=== PATIENT | male | born 1975 ===

== ENCOUNTER 2017-12-25 11:56 | Inpatient (IN) | payer OTHER ==
[2017-12-26] MEDS ORDERED: BISACODYL 10 MG SUPP PR PRN (15:15)
[2017-12-26] MEDS ORDERED: SENNOSIDES 1 TAB PO PRN (15:35)
[2017-12-26] MEDS ORDERED: MELATONIN 3 MG TAB PO PRN (15:35)
--- NOTE | 2017-12-26 16:27 | PDOREHIP ---
Admission [facility] - Admission - 3 Day Assessment Period Admission Date/Day 1: 12/26/17 Day 2: 12/27/17 Day 3: 12/28/17 - Active Diagnoses Comorbidities and Co-existing Conditions at Admission: . None of the Above - Skin Conditions Unhealed Pressure Ulcer (1 or more/Stage 1 or >)-Admission: 0. No
--- NOTE | 2017-12-26 16:36 | GHP ---
[f rep st] HISTORY AND PHYSICAL POST ADMISSION PHYSICIAN EVALUATION AND REHABILITATION TREATMENT PLAN. DATE OF ADMISSION: 12/26/2017 DATE OF EVALUATION: 12/26/2017. TIME OF EVALUATION: 1520. REFERRING FACILITY: [facility]. IMPAIRMENT GROUP: 2.1. DATE OF ONSET: 12/21/2017. REFERRING PHYSICIAN: Dr. Carrion. CONSULTING PHYSICIANS: He was managed by the hospitalist service. REHABILITATION DIAGNOSIS: Debility, status post right craniotomy for biopsy of right frontal mass. ETIOLOGIC DIAGNOSIS: Nontraumatic brain dysfunction. DATE OF SURGERY: 12/22/2017. HISTORY OF PRESENT ILLNESS: This patient was admitted to [facility] with persistent and worsening headache, dizziness, vomiting, and blurred vision. Brain MRI showed an extensive mass lesion in the right frontal lobe with midline shift. 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 He was placed on dexamethasone to reduce brain edema and levetiracetam as seizure prophylaxis. He underwent craniotomy with biopsy of the mass on 12/22/2017. Postoperative issues included pain, bradycardia, elevated blood pressure, left-sided weakness, blurred vision, and vomiting. He was medically stabilized and ready for inpatient rehabilitation. IMAGING STUDIES: In the hospital, brain imaging showed the brain mass and subsequent resection cavity of approximately 2 x 2 x 3 cm. There was a midline shift of 8-9 mm, which persisted after his surgery. He had CT imaging of the cervical spine, which was without significant abnormality. Chest x-ray was without any abnormalities. A sinus CT was obtained and there was no sinusitis seen. LABORATORY STUDIES: Including CBC and basic metabolic profile were essentially unremarkable, but I do not have results beyond 12/23/2017. PRECAUTIONS: He is a fall risk and he has seizure precautions. ACTIVE COMORBIDITIES: He has the tier 3 comorbidity of left hemiparesis. He otherwise has no tier 1, tier 2 or tier 3 comorbidities. PAST MEDICAL HISTORY: He has no history of prior medical illnesses. PAST SURGICAL HISTORY: He has not had any surgeries. PREHOSPITAL MEDICATIONS: He was taking no medications. ADMISSION MEDICATIONS: 1. Dexamethasone taper. 2. Levetiracetam 500 mg twice daily. ALLERGIES: There are no known drug allergies. PSYCHOSOCIAL HISTORY: He is . He lives with his . He quit smoking in 2012. He has 2 children, ages 6 and 10. 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 There are stairs to enter the house. FAMILY HISTORY: Noncontributory. REVIEW OF SYSTEMS: He thinks he still has some blurred vision and found it difficult to determine which kavya the ambulance was in on his ride over. He feels that he needs to go to the bathroom, to move his bowels and to urinate. He reports he did not have access to an actual bathroom, but voiding was done in the bed or bedside commode while he was in the hospital. He slept well last night. He denies pain right now. He denies nausea, vomiting, constipation, or diarrhea. He denies fevers or chills. He denies dysuria or urinary frequency. He has no movement in the left upper extremity, but he has been improving in terms of being able to move the left lower extremity. He reports normal sensation throughout. He denies difficulty swallowing. Otherwise, a 10-point review of systems is negative. PHYSICAL EXAMINATION: VITAL SIGNS: Blood pressure is 108/77; heart rate is 53 ; respiratory rate is 18; oxygen saturation is 95% on room air; temperature is 36.9 degrees centigrade. GENERAL: This is a well-nourished, well-developed, somewhat overweight appearing man, appears his chronologic age, cooperative and in no acute distress, dressed in a hospital gown, in bed. HEENT: Extraocular movements are intact. Pupils are equal, round, and reactive to light. Mucous membranes are moist. Dentition is in good condition. He has a crowded airway, Mallampati class 3. NECK: Supple. HEART: There is a regular rate and rhythm with no murmurs, rubs, or gallops. LUNGS: Clear to auscultation bilaterally. ABDOMEN: Soft, nontender, nondistended with normoactive bowel sounds and no hepatosplenomegaly. EXTREMITIES: There is no cyanosis, clubbing, or edema. NEUROLOGIC: He is alert and oriented x3. Cranial nerves 2-12 are grossly intact. On the right side, there is no weakness. On the left side the left upper extremity has flaccid paralysis including no shoulder shrug. The left lower extremity has hip flexion approximately 3/5, quadriceps extension approximately 3/5, and he is able to partially support his weight during a transfer. SKIN: His surgical incision appears to be glued over the frontal scalp bilaterally, more so on the right than the left. There is no erythema or drainage. CURRENT LEVEL OF FUNCTION: Per the pre-admission screen. Regarding diet, feeding, and swallowing, he was on a regular texture diet with thin liquids. He was dependent for bathing. For toileting he required assistance. Bed mobility required minimal assistance for the left lower extremity. Transfers required minimal assistance into a standing aide. Balance, seated required minimal assistance. Endurance was fair. Regarding gait he was doing pregait activities and marching in place with close contact guard. He had proximal control of the left lower extremity. Regarding communication, he was noted to have aphasia with impairments in word finding and speech fluency. Regarding cognition, he was noted to have short-term memory impairment, slow speed of processing, and a flat affect. He was considered a fall risk and was noted to have left inattention. On today's exam, he is independent with bed mobility, but otherwise there are no significant differences. IMPRESSION: This is a 42-year-old man who was hospitalized with headaches, dizziness, vomiting, and blurred vision. He was found to have an extensive, primarily right frontal brain mass on imaging, consistent with gliomatosis cerebri. He had a right craniotomy and a biopsy done. There was a right to left shift and risk for brain herniation. He was treated with dexamethasone to reduce cerebral edema and to avoid brain herniation. He was treated with levetiracetam as seizure prophylaxis. Postoperatively he has been stabilized, is no longer in pain, has improvement in blurred vision, and has improvement in left-sided weakness. He is appropriate for inpatient rehabilitation. His goal is to complete a rehabilitation stay and then return home with his family and supportive services. For a safe discharge, it is anticipated that he will be independent with eating and grooming, will achieve modified independence for bed mobility, transfers, and dressing, will be able to sit independently at the edge of the bed, and will ambulate with a least restrictive device for household distances. He may require a wheelchair for community distances. He will need to be able to ascend and descend 15 stairs with contact guard. He will have improved speech fluency. He will need to be able to be home for short periods of time by himself. It is likely he will continue to require assistance for household management, shopping, and meals. He will have therapy with Physical Therapy, Occupational Therapy, and Speech and Language Pathology, initially on a modified schedule of 30-60 minutes per day for each discipline on 7 days of the week. His expected duration of stay is 21-28 days. It is anticipated that upon discharge he will continue to benefit from home health services including nursing, speech and language pathology, nurse's aide, social work, occupational therapy, and physical therapy. PLAN: 1. Debility with left hemiparesis, status post right craniotomy and biopsy of extensive mass consistent with gliomatosis cerebri. PT and OT to optimize mobility and activities of daily living towards modified independence to independent level. 2. Cognitive issues postsurgery with slow processing and possible expressive aphasia, though this was not clearly evident on my exam today. Assessment and treatment per Speech and Language Pathology. 3. Risk for cerebral edema and for seizures. He will have seizure precautions. Continue levetiracetam and continue dexamethasone taper. 4. Prophylaxis. We will continue heparin which he was receiving in the hospital, 5000 units twice daily, until his mobility is considerably improved. I have ordered laxatives and a bladder scan in case he should have difficulty with moving his bowels or urinating. FOLLOWUP: He is to see surgeon, Dr. Carrion in 2-3 weeks for a postoperative check. If he is still in the rehabilitation hospital at that time, consideration will be given to postponing his followup until after he leaves. Once the pathology is available from his biopsy specimen, he will need referral to Oncology, which typically is done by Neurosurgery. /[id number]/MODL MTDD
[2017-12-26] MEDS: DEXAMETHASONE 4 MG TAB PO SCH ×2 (16:50→20:36)
[2017-12-26] MEDS: levETIRAcetam 500 MG TAB PO SCH (20:36)
[2017-12-27] MEDS: DEXAMETHASONE 4 MG TAB PO SCH ×3 (06:14→22:01)
[2017-12-27 07:55] LABS: PLATELET COUNT 279 10^3/uL (150-400)
[2017-12-27] MEDS: levETIRAcetam 500 MG TAB PO SCH ×2 (08:27→21:58)
[2017-12-27] MEDS: HEPARIN 5,000 UNIT/0.5 ML INJ SC SCH ×2 (12:06→21:59)
--- NOTE | 2017-12-27 12:21 | SOAPPROG ---
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 * PT and OT to optimize mobility and activities of daily living towards modified independence to independent level. * Cognitive issues postsurgery with slow processing and possible expressive aphasia, though this was not clearly evident on my exam today. * Assessment and treatment per Speech and Language Pathology. 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 Carrion today, 12/27/2017. Grade 3, pathology sent to [place] for genetics. Prognosis depends on tumor genetics. Spent 20 - 30 minutes discussing treatment with step-mother and father, and with patient and step-mother. * Risk for cerebral edema and for seizures. He will have seizure precautions. Continue levetiracetam and continue dexamethasone taper. * Anxiety verses adjustment disorder with depressed mood versus pathologic laughing and crying. * Discussed medications, 12/27/2017, and he declines at present. * Encouraged him to engage in counseling with the social media developer. * Prophylaxis. Continue heparin which he was receiving in the hospital, 5000 units twice daily, until his mobility is considerably improved. I have ordered laxatives and a bladder scan in case he should have difficulty with moving his bowels or urinating. FOLLOWUP: He is to see surgeon, Dr. Carrion in 2-3 weeks for a postoperative check. If he is still in the rehabilitation hospital at that time, consideration will be given to postponing his followup until after he leaves. Once the pathology is available from his biopsy specimen, he will need referral to Oncology, which typically is done by Neurosurgery. 12/27/17 16:38 Subjective: No complaints. He had been noted to have some uncontrollable laughing and crying. He has some anxiety regarding his diagnosis and treatment. Is not in pain. No cough or dyspnea, no fevers or chills. Objective: Vital Signs Temp Pulse Resp BP Pulse Ox 36.6 C 51 L 96 H 117/75 95 12/27/17 08:00 12/27/17 08:00 12/27/17 08:00 12/27/17 08:00 12/26/17 19:09 Laboratory Results 12/27/17 06:00 12/27/17 06:00 12/26/17 12/27/17 12/28/17 05:59 05:59 05:59 Intake Total 1040 420 Output Total 1999 678 Balance -966 -511 - Time Spent With Patient Time Spent With Patient: Greater than 35 min floor time today, including more than 50% of time in counseling, discussing diagnosis, prognosis, and plan with step mother and father and with patient. Physical Exam - Physical Exam General Appearance: WD/WN, alert, no apparent distress Respiratory: normal breath sounds, No crackles, No rhonchi, No wheezing Cardiac/Chest: regular rate, rhythm, No edema, No diastolic murmur, No systolic murmur Skin: normal color, warm/dry, other (Scalp wound well-approximated. No erythema or discharge.) Neuro/Psych: alert, normal mood/affect, oriented x 3, motor weakness (Left upper greater than lower extremity) ICD10 Worksheet Patient Problems: Problems Problem Status Onset Right frontal lobe mass Acute S/P craniotomy Acute
[2017-12-28] MEDS: DEXAMETHASONE 4 MG TAB PO SCH ×3 (06:04→21:01)
[2017-12-28] MEDS: levETIRAcetam 500 MG TAB PO SCH ×2 (08:02→21:01)
[2017-12-28] MEDS: HEPARIN 5,000 UNIT/0.5 ML INJ SC SCH ×2 (08:02→21:01)
--- NOTE | 2017-12-28 14:11 | SOAPPROG ---
SOAP Progress Note Assessment/Plan: 42-year-old male status post resection of gliomatosis cerebri with impairments in mobility, self-care, and cognition Today's update: Patient had the 2nd of 2 falls in the past couple of days, this 1 and particular related to lack of insight and awareness of his impairments. Continue encouraging q.3 hours scheduled toileting, using chair and bed alarms at all times. Patient does not appear to have hit his head or have significant injury from most recent fall. Continue to monitor closely and work with staff to ensure patient's safety. A total of 35 min was spent on the floor in the care of the patient, the majority of which was spent counseling and coordination of care regarding fall prevention and reinforcement of current impairments. Additional problems reviewed but unchanged today include treatment of gliomatosis cerebri, seizure prophylaxis, dexamethasone taper, adjustment, and DVT prophylaxis plan. He will need follow up with Neurosurgery, Oncology, primary care physician. 12/28/17 14:08 12/28/17 14:15 Subjective: Chief complaint: Fall Was informed by staff today that patient was found down next to his chair where he had slipped out of his chair, endorse some discomfort in his left arm. The patient states that he did not hit his head and remembered the event in its entirety. He endorses only mild ache in his left arm in the posterior aspect around the tricep, but no other discomfort status post a fall. He states his sensation is intact on his affected hemiparetic side. When asked about the fall , he states that he thought that he was able to put his shorts on by himself and attempted to without assistance. He recognizes in retrospect that he did not have insight into his impairments. This seems to be a regular occurrence, where reinforcing safety with him in that discussion. He describes no other new numbness, tingling, or weakness, no new chest pain or shortness of breath, no other injuries. Objective: Vital Signs Temp Pulse Resp BP Pulse Ox 36.4 C 76 19 127/85 H 96 12/28/17 08:02 12/28/17 08:02 12/28/17 08:02 12/28/17 08:02 12/28/17 08:02 Laboratory Results 12/27/17 06:00 12/27/17 06:00 12/27/17 12/28/17 12/29/17 05:59 05:59 05:59 Intake Total 1040 4660 320 Output Total 1999 6672 Dftzyqf -163 -4349 320 Physical Exam - Physical Exam General Appearance: WD/WN, alert, no apparent distress EENT: No scleral icterus (R), No scleral icterus (L) Respiratory: normal breath sounds, No respiratory distress, No accessory muscle use Cardiac/Chest: normal peripheral pulses, regular rate, rhythm, No edema Skin: other (Patient indicated with 1 finger the area on the posterior aspect of his left triceps that was slightly achy, no bruising, no skin breakdown or abrasion, no redness, no warmth, no bleeding. Normal in appearance. Scalp wound is healing well. No erythema, discharge, warmth, not painful.) Extremities: non-tender Neuro/Psych: alert, normal mood/affect, oriented x 3, motor weakness (Dense left -sided hemiparesis) ICD10 Worksheet Patient Problems: Problems Problem Status Onset Right frontal lobe mass Acute S/P craniotomy Acute
[2017-12-29] MEDS: levETIRAcetam 500 MG TAB PO SCH ×2 (08:18→20:53)
[2017-12-29] MEDS: DEXAMETHASONE 4 MG TAB PO SCH ×2 (08:26→20:53)
[2017-12-29] MEDS: HEPARIN 5,000 UNIT/0.5 ML INJ SC SCH ×2 (08:37→20:53)
--- NOTE | 2017-12-29 09:46 | SOAPPROG ---
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 * Initial functional independence measure is 74 on 12/29/2017. He is continent of bowel and bladder but impulsive and has fallen twice. Bed mobility requires minimal assistance with cues to attend to the left. Transfers require minimal to moderate assistance. Wheelchair mobility requires minimal assistance due to left hemineglect. He ambulated 60 ft with a tracking pole, moderate assistance. He is distractible. He used a left AFO. Grooming and hygiene is done seated. Upper body dressing requires cues and supervision, lower body dressing requires contact guard assist and cues. Bath transfer was done with contact guard assist to minimal assist and bathing with minimal assist. Toilet transfer required contact guard to minimal assist and toileting the same. * Continue PT and OT to optimize mobility and activities of daily living towards modified independence to independent level. * Cognitive issues postsurgery. * Mild to moderate executive function deficit with decreased self monitoring and repair skills and decreased inhibition. * Continue Speech and Language Pathology. 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 Prognosis depends on tumor genetics. Spent 20 - 30 minutes on 12/27/2017 discussing treatment with step-mother and father, and with patient and step-mother. * Follow up with Oncology, to be referred by Neurosurgery. * Risk for cerebral edema and for seizures. He will have seizure precautions. Continue levetiracetam and continue dexamethasone taper. * Anxiety verses adjustment disorder with depressed mood versus pathologic laughing and crying. * Discussed medications, 12/27/2017, and he declined. * Encouraged him to engage in counseling with the manager social. * Prophylaxis. Continue heparin which he was receiving in the hospital, 5000 units twice daily, until his mobility is considerably improved. I have ordered laxatives and a bladder scan in case he should have difficulty with moving his bowels or urinating. Attended staffing, 15 min. Discussed with case management, dietitian, nursing, PT, OT, CLERK GENERAL. He is in the process of a divorce and has moved out to an apartment where there is a full flight of steps. He may discharge to a long- term stay at a hotel if he is unable to handle the steps. Parents and stepmother are very involved in his care, and will continue to assist for some period of months. FOLLOWUP: He is to see surgeon, Dr. Carrion in 2-3 weeks for a postoperative check. If he is still in the rehabilitation hospital at that time, consideration will be given to postponing his followup until after he leaves. Once the pathology is available from his biopsy specimen, he will need referral to Oncology, which typically is done by Neurosurgery. PCP is Ger Chen. 12/29/17 15:13 Subjective: No complaints. Slept well. Not in pain. Thinks she occasionally is feeling return of movement to his left hand. Objective: Vital Signs Temp Pulse Resp BP Pulse Ox 36.5 C 80 18 115/86 H 95 12/28/17 19:13 12/28/17 19:13 12/28/17 19:13 12/28/17 19:13 12/28/17 19:13 Laboratory Results 12/27/17 06:00 12/27/17 06:00 12/28/17 12/29/17 12/30/17 05:59 05:59 05:59 Intake Total 1680 1160 240 Output Total 3950 1450 Balance -2270 -290 240 - Time Spent With Patient Time Spent With Patient: Greater than 35 min floor time today, including more than 50% of time in coordination of care during staffing meeting, and counseling patient. Physical Exam - Physical Exam General Appearance: WD/WN, alert, no apparent distress Respiratory: normal breath sounds, No crackles, No rhonchi, No wheezing Cardiac/Chest: regular rate, rhythm, No edema, No diastolic murmur, No systolic murmur Skin: normal color, warm/dry, other (Scalp incision well approximated, no erythema, no drainage.) Neuro/Psych: alert, normal mood/affect, oriented x 3, motor weakness (Left upper extremity flaccid paralysis. Improving movement of left lower extremity.) ICD10 Worksheet Patient Problems: Problems Problem Status Onset Right frontal lobe mass Acute S/P craniotomy Acute
[2017-12-30] MEDS: DEXAMETHASONE 4 MG TAB PO SCH ×2 (07:57→20:59)
[2017-12-30] MEDS: levETIRAcetam 500 MG TAB PO SCH ×2 (07:57→20:59)
[2017-12-30] MEDS: HEPARIN 5,000 UNIT/0.5 ML INJ SC SCH ×2 (07:58→20:59)
--- NOTE | 2017-12-30 13:23 | SOAPPROG ---
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 * Initial functional independence measure is 74 on 12/29/2017. He is continent of bowel and bladder but impulsive and has fallen twice. Bed mobility requires minimal assistance with cues to attend to the left. Transfers require minimal to moderate assistance. Wheelchair mobility requires minimal assistance due to left hemineglect. He ambulated 60 ft with a tracking pole, moderate assistance. He is distractible. He used a left AFO. Grooming and hygiene is done seated. Upper body dressing requires cues and supervision, lower body dressing requires contact guard assist and cues. Bath transfer was done with contact guard assist to minimal assist and bathing with minimal assist. Toilet transfer required contact guard to minimal assist and toileting the same. * Continue PT and OT to optimize mobility and activities of daily living towards modified independence to independent level. * Cognitive issues postsurgery. * Mild to moderate executive function deficit with decreased self monitoring and repair skills and decreased inhibition. * Continue Speech and Language Pathology. 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 Carrion 12/27/2017. Grade 3, pathology sent to [place] for genetics. Prognosis depends on tumor genetics. * Follow up with Oncology, to be referred by Neurosurgery. * Risk for cerebral edema and for seizures. He will have seizure precautions. Continue levetiracetam and continue dexamethasone taper. * Anxiety verses adjustment disorder with depressed mood versus pathologic laughing and crying. * Discussed medications, 12/27/2017, and he declined. * Encouraged him to engage in counseling with the social work coordinator. * Prophylaxis. Continue heparin which he was receiving in the hospital, 5000 units twice daily, until his mobility is considerably improved. I have ordered laxatives and a bladder scan in case he should have difficulty with moving his bowels or urinating. Plan: 12/30/17 13:22 Subjective: No new complaints. Improving with therapy Objective: Vital Signs Temp Pulse Resp BP Pulse Ox 36.5 C 75 15 113/82 H 93 12/30/17 06:26 12/30/17 06:26 12/30/17 06:26 12/30/17 06:26 12/30/17 06:26 Laboratory Results 12/27/17 06:00 12/27/17 06:00 12/29/17 12/30/17 12/31/17 05:59 05:59 05:59 Intake Total 1169 346 492 Output Total 3517 3350 Balance -290 -505 813 Physical Exam - Physical Exam General Appearance: WD/WN, alert, no apparent distress EENT: other (Incision looks clean) Neck: supple Respiratory: lungs clear, normal breath sounds Cardiac/Chest: regular rate, rhythm, No edema Neuro/Psych: alert, normal mood/affect, oriented x 3 ICD10 Worksheet Patient Problems: Problems Problem Status Onset Right frontal lobe mass Acute S/P craniotomy Acute
[2017-12-31] MEDS: HEPARIN 5,000 UNIT/0.5 ML INJ SC SCH ×2 (09:40→21:20)
[2017-12-31] MEDS: DEXAMETHASONE 2 MG TAB PO SCH ×2 (09:41→21:21)
[2017-12-31] MEDS: levETIRAcetam 500 MG TAB PO SCH ×2 (09:41→21:20)
--- NOTE | 2017-12-31 19:44 | SOAPPROG ---
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 * Initial functional independence measure is 74 on 12/29/2017. He is continent of bowel and bladder but impulsive and has fallen twice. Bed mobility requires minimal assistance with cues to attend to the left. Transfers require minimal to moderate assistance. Wheelchair mobility requires minimal assistance due to left hemineglect. He ambulated 60 ft with a tracking pole, moderate assistance. He is distractible. He used a left AFO. Grooming and hygiene is done seated. Upper body dressing requires cues and supervision, lower body dressing requires contact guard assist and cues. Bath transfer was done with contact guard assist to minimal assist and bathing with minimal assist. Toilet transfer required contact guard to minimal assist and toileting the same. * Continue PT and OT to optimize mobility and activities of daily living towards modified independence to independent level. * Cognitive issues postsurgery. * Mild to moderate executive function deficit with decreased self monitoring and repair skills and decreased inhibition. * Continue Speech and Language Pathology. 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 Prognosis depends on tumor genetics. * Follow up with Oncology, to be referred by Neurosurgery. * Dr Carrion talked some with patient on monday * Risk for cerebral edema and for seizures. He will have seizure precautions. Continue levetiracetam and continue dexamethasone taper. * Anxiety verses adjustment disorder with depressed mood versus pathologic laughing and crying. * Discussed medications, 12/27/2017, and he declined. * Encouraged him to engage in counseling with the social welfare research worker. * Prophylaxis. Continue heparin which he was receiving in the hospital, 5000 units twice daily, until his mobility is considerably improved. I have ordered laxatives and a bladder scan in case he should have difficulty with moving his bowels or urinating. Plan: 12/30/17 13:22 12/31/17 19:44 Subjective: No new complaints. Doing well with rehab. Did talk to Dr. Carrion this morning who relayed some information about pathology but patient is not completely sure he understood Objective: Vital Signs Temp Pulse Resp BP Pulse Ox 36.4 C 100 12 106/75 93 12/31/17 07:52 12/31/17 07:52 12/31/17 07:52 12/31/17 07:52 12/31/17 07:52 Laboratory Results 12/27/17 06:00 12/27/17 06:00 12/30/17 12/31/17 01/01/18 05:59 05:59 05:59 Intake Total 680 1300 880 Output Total 1350 2100 1600 Balance -886 -381 -340 Physical Exam - Physical Exam General Appearance: WD/WN, alert, no apparent distress Neck: supple Respiratory: lungs clear, normal breath sounds, No respiratory distress Skin: warm/dry Neuro/Psych: alert, normal mood/affect, oriented x 3 ICD10 Worksheet Patient Problems: Problems Problem Status Onset Right frontal lobe mass Acute S/P craniotomy Acute
[2018-01-01] MEDS: DEXAMETHASONE 2 MG TAB PO SCH ×2 (08:56→21:19)
[2018-01-01] MEDS: levETIRAcetam 500 MG TAB PO SCH ×2 (08:56→21:20)
[2018-01-01] MEDS: HEPARIN 5,000 UNIT/0.5 ML INJ SC SCH ×2 (08:57→21:20)
--- NOTE | 2018-01-01 09:50 | SOAPPROG ---
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 * Initial functional independence measure is 74 on 12/29/2017. He is continent of bowel and bladder but impulsive and has fallen twice. Bed mobility requires minimal assistance with cues to attend to the left. Transfers require minimal to moderate assistance. Wheelchair mobility requires minimal assistance due to left hemineglect. He ambulated 60 ft with a tracking pole, moderate assistance. He is distractible. He used a left AFO. Grooming and hygiene is done seated. Upper body dressing requires cues and supervision, lower body dressing requires contact guard assist and cues. Bath transfer was done with contact guard assist to minimal assist and bathing with minimal assist. Toilet transfer required contact guard to minimal assist and toileting the same. * As of 12/31/2017, has ambulated 120'. * Continue PT and OT to optimize mobility and activities of daily living towards modified independence to independent level. * Cognitive issues postsurgery. * Mild to moderate executive function deficit with decreased self monitoring and repair skills and decreased inhibition. * Continue Speech and Language Pathology. 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 Dr. Carrion believes he may have resected the entire tumor. * Follow up with Oncology in approximately 2 weeks to begin radiation. * Risk for cerebral edema and for seizures. He will have seizure precautions. Continue levetiracetam and continue dexamethasone taper. * Anxiety verses adjustment disorder with depressed mood versus pathologic laughing and crying. * Discussed medications, 12/27/2017, and he declined. * Encouraged him to engage in counseling with the drug abuse social worker. * Prophylaxis. Continue heparin which he was receiving in the hospital, 5000 units twice daily, until his mobility is considerably improved. I have ordered laxatives and a bladder scan in case he should have difficulty with moving his bowels or urinating. DISPOSITION: He is in the process of a divorce and has moved out to an apartment where there is a full flight of steps. He may discharge to a long- term stay at a hotel if he is unable to handle the steps. Parents and stepmother are very involved in his care, and will continue to assist for some period of months. FOLLOWUP: He is to see surgeon, Dr. Carrion in 2-3 weeks for a postoperative check. If he is still in the rehabilitation hospital at that time, consideration will be given to postponing his followup until after he leaves. PCP is Ger Chen. 01/01/18 14:24 Subjective: Would like to stop the heparin shots. Not short his walking as far is 150 ft. Not walking to meals. Feels he has good return in his leg and has noticed return of flexion and his hand. Sleeping well. Otherwise without complaints. Reports he had a call from Dr. Carrion's office and that he needs to see oncology soon Objective: Vital Signs Temp Pulse Resp BP Pulse Ox 36.7 C 77 16 109/68 94 12/31/17 20:00 12/31/17 20:00 12/31/17 20:00 12/31/17 20:00 12/31/17 20:00 Laboratory Results 12/27/17 06:00 12/27/17 06:00 12/31/17 01/01/18 01/02/18 05:59 05:59 05:59 Intake Total 1300 1380 586 Output Total 2100 1600 Balance -800 -220 586 Physical Exam - Physical Exam General Appearance: WD/WN, alert, no apparent distress Respiratory: No respiratory distress, No accessory muscle use Skin: normal color, warm/dry, other (Scalp incision well approximated, no erythema or discharge.) Neuro/Psych: alert, normal mood/affect, oriented x 3, motor weakness ( Demonstrates finger flexion with) ICD10 Worksheet Patient Problems: Problems Problem Status Onset Right frontal lobe mass Acute S/P craniotomy Acute
[2018-01-02] MEDS: DEXAMETHASONE 2 MG TAB PO SCH ×2 (08:41→21:48)
[2018-01-02] MEDS: levETIRAcetam 500 MG TAB PO SCH ×2 (08:41→21:48)
[2018-01-02] MEDS: HEPARIN 5,000 UNIT/0.5 ML INJ SC SCH ×2 (08:42→21:48)
--- NOTE | 2018-01-02 13:47 | SOAPPROG ---
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 * Initial functional independence measure is 74 on 12/29/2017. He is continent of bowel and bladder but impulsive and has fallen twice. Bed mobility requires minimal assistance with cues to attend to the left. Transfers require minimal to moderate assistance. Wheelchair mobility requires minimal assistance due to left hemineglect. He ambulated 60 ft with a tracking pole, moderate assistance. He is distractible. He used a left AFO. Grooming and hygiene is done seated. Upper body dressing requires cues and supervision, lower body dressing requires contact guard assist and cues. Bath transfer was done with contact guard assist to minimal assist and bathing with minimal assist. Toilet transfer required contact guard to minimal assist and toileting the same. * As of 12/31/2017, has ambulated 120'. * Continue PT and OT to optimize mobility and activities of daily living towards modified independence to independent level. * Cognitive issues postsurgery. * Mild to moderate executive function deficit with decreased self monitoring and repair skills and decreased inhibition. * Noted to be distractable but impulsivity improved and no longer needing bed or chair alarms as of 01/02/2018. * Continue Speech and Language Pathology. 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 Dr. Carrion believes he may have resected the entire tumor. * Follow up with Oncology in approximately 2 weeks to begin radiation. * Ordered Oncology consult for 01/03/2018. * Risk for cerebral edema and for seizures. He will have seizure precautions. Continue levetiracetam and continue dexamethasone taper. * Anxiety verses adjustment disorder with depressed mood versus pathologic laughing and crying. * Discussed medications, 12/27/2017, and he declined. * Encouraged him to engage in counseling with the criminal justice social worker. * Prophylaxis. Continue heparin which he was receiving in the hospital, 5000 units twice daily, until his mobility is considerably improved. Walked 120' yesterday 01/01/2018. Not yet ready to D/C enoxaparin. I have ordered laxatives and a bladder scan in case he should have difficulty with moving his bowels or urinating. DISPOSITION: He is in the process of a divorce and has moved out to an apartment where there is a full flight of steps. He may discharge to a long- term stay at a hotel if he is unable to handle the steps. Parents and stepmother are very involved in his care, and will continue to assist for some period of months. Discharge plan for 01/16/2018. Disposition unclear, may have new apartment versus return to his home for sure term versus long-term hotel stay. FOLLOWUP: He is to see surgeon, Dr. Carrion on 01/18/2018. PCP is Ger Chen. 01/02/18 13:47 Subjective: No complaints. Slept well. Not in pain. OT reports improving movement can be elicited of the left upper extremity but not volitional, has motor apraxia. Objective: Vital Signs Temp Pulse Resp BP Pulse Ox 36.6 C 101 H 18 120/84 H 94 01/02/18 08:00 01/02/18 08:00 01/02/18 08:00 01/02/18 08:00 01/02/18 08:00 Laboratory Results 12/27/17 06:00 12/27/17 06:00 01/01/18 01/02/18 01/03/18 05:59 05:59 05:59 Intake Total 1380 1536 610 Output Total 1600 2500 Balance -220 -964 610 Physical Exam - Physical Exam General Appearance: WD/WN, alert, no apparent distress Respiratory: No respiratory distress, No accessory muscle use Skin: normal color, warm/dry, other (Scalp incision well approximated, no erythema or drainage.) Neuro/Psych: alert, normal mood/affect, oriented x 3, motor weakness (LUE) ICD10 Worksheet Patient Problems: Problems Problem Status Onset Right frontal lobe mass Acute S/P craniotomy Acute
[2018-01-02] MEDS ORDERED: PREPARATION H 51 GM CRTUBE PR PRN (14:31)
[2018-01-03] MEDS: HEPARIN 5,000 UNIT/0.5 ML INJ SC SCH (09:06)
[2018-01-03] MEDS: levETIRAcetam 500 MG TAB PO SCH ×2 (09:06→20:22)
[2018-01-03] MEDS: DEXAMETHASONE 2 MG TAB PO SCH (09:06)
--- NOTE | 2018-01-03 11:40 | SOAPPROG ---
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 * Initial functional independence measure is 74 on 12/29/2017. He is continent of bowel and bladder but impulsive and has fallen twice. Bed mobility requires minimal assistance with cues to attend to the left. Transfers require minimal to moderate assistance. Wheelchair mobility requires minimal assistance due to left hemineglect. He ambulated 60 ft with a trekking pole, moderate assistance. He is distractible. He used a left AFO. Grooming and hygiene is done seated. Upper body dressing requires cues and supervision, lower body dressing requires contact guard assist and cues. Bath transfer was done with contact guard assist to minimal assist and bathing with minimal assist. Toilet transfer required contact guard to minimal assist and toileting the same. * As of 01/02/2018, has ambulated> 200'. * Continue PT and OT to optimize mobility and activities of daily living towards modified independence to independent level. * Cognitive issues postsurgery. * Mild to moderate executive function deficit with decreased self monitoring and repair skills and decreased inhibition. * Noted to be distractable but impulsivity improved and no longer needing bed or chair alarms as of 01/02/2018. * Continue Speech and Language Pathology. 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 Dr. Carrion believes he may have resected the entire tumor. * Follow up with Oncology in approximately 2 weeks to begin radiation. * Ordered Oncology consult for 01/03/2018. * Risk for cerebral edema and for seizures. He will have seizure precautions. Continue levetiracetam and continue dexamethasone taper. * Anxiety verses adjustment disorder with depressed mood versus pathologic laughing and crying. * Discussed medications, 12/27/2017, and he declined. * Encouraged him to engage in counseling with the social services manager. * Prophylaxis. Mobility much improved. Will discontinue heparin, 01/03/2018. Ambulated to meals. DISPOSITION: He is in the process of a divorce and has moved out to an apartment where there is a full flight of steps. He may discharge to a long- term stay at a hotel if he is unable to handle the steps. Parents and stepmother are very involved in his care, and will continue to assist for some period of months. Discharge plan for 01/16/2018. Disposition unclear, may have new apartment versus return to his home for sure term versus long-term hotel stay. FOLLOWUP: He is to see surgeon, Dr. Carrion on 01/18/2018. PCP is Ger Chen. 01/03/18 11:36 Subjective: No complaints. Sleeping well. Not in pain. Anxiety is improved. Feels he is walking better. Still minimal return to the left upper extremity. He reports he can squeezes fingers with his difficulty relaxing. Objective: Vital Signs Temp Pulse Resp BP Pulse Ox 36.6 C 75 20 121/84 H 91 L 01/03/18 08:00 01/03/18 08:00 01/03/18 08:00 01/03/18 08:00 01/03/18 08:00 Laboratory Results 12/27/17 06:00 12/27/17 06:00 01/02/18 01/03/18 01/04/18 05:59 05:59 05:59 Intake Total 1536 1350 760 Output Total 2500 Balance -964 1350 760 Physical Exam - Physical Exam General Appearance: WD/WN, alert, no apparent distress Respiratory: normal breath sounds, No crackles, No rhonchi, No wheezing Cardiac/Chest: regular rate, rhythm, No edema, No diastolic murmur, No systolic murmur Skin: normal color, warm/dry, other (Scalp incision well approximated, no erythema or drainage.) Neuro/Psych: alert, normal mood/affect, oriented x 3, motor weakness (Left upper extremity, demonstrates finger flexion.) ICD10 Worksheet Patient Problems: Problems Problem Status Onset Right frontal lobe mass Acute S/P craniotomy Acute
--- NOTE | 2018-01-03 18:05 | GCON ---
[f rep st] CONSULTATION MEDICAL ONCOLOGY CONSULTATION. DATE OF CONSULTATION: 01/03/2018 REASON FOR CONSULTATION: This is a 42-year-old white male who was found to have right-sided brain tu mor and underwent emergency neurosurgical resection on 12/19/2017. The surgery was at [facility] and he is now seen at the rehab unit of [facility] postoperatively for initial [facility] oncology consult. HISTORY OF PRESENT ILLNESS: The patient is a 42-year-old white male who had noted several weeks of p rogressive headache, visual change, nausea, blurred vision and bed ridden status related to FENCE ERECTOR sympt oms and syncope that then led to emergent hospitalization at [facility]. The patient was found to have a large right ill-defined mass in the right frontal lobe and extending across the c orpus callosum. Significant cerebral edema was noted. The patient went to craniotomy and neurosurgi madi resection at [facility] with a relatively uneventful postoperative course. He has now been transferred to [facility]'s rehab unit for rehab care. His rehab care has been uneventful. There is no previous history of brain tumor. The patient has had no previous significant medical or surgical condition prior to admission. SOCIAL HISTORY: The patient grew up in the [place] area and in [place]. He is recently di vorced and his ex- is Nazanin, and they have 2 small children who are ages 10 and 6. He will be l iving in his own condominium dwelling and apparently has a few flights of stairs up and down to fully access his condominium. His and children will be living nearby. His indicates her suni beverly to assist the patient with transportation, etc. ALLERGIES: None known. PRIOR MEDICATIONS: No prescription medicines. SOCIAL HISTORY: There is no previous history of alcohol or tobacco usage or occupational exposures. 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 REVIEW OF SYSTEMS: Essentially unremarkable other than the acute symptoms leading to hospitalization earlier this month. PHYSICAL EXAM: GENERAL: This is a pleasant, middle-aged white male, seen in a wheelchair in no acut e distress. He is seen with his ex at the bedside. HEENT: The right extensive craniotomy inci faith is healing quite well and is nontender. There is no facial asymmetry. Sclerae anicteric. Oral mucosa intact. NECK: Thyroid not enlarged. RESPIRATORY: Lung prado clear. CARDIAC: Exam shows regular rhythm without S3 or S4. ABDOMEN: Soft without mass, distention, tenderness or HSM. EXTRE MITIES: Show some disuse atrophy, especially in the left upper extremity. NEUROLOGIC: He grossly h as markedly paresis on the left side. His speech is fluent. His motor strength on the right side is entirely normal. LABORATORY STUDIES: On 12/27/2017: White count 9.75, hemoglobin 15.3, platelet count 279. Potassiu m 4.2, BUN 19, creatinine 0.7, glucose 101, calcium 8.7. Of note, given the different hospital system, the patient's operative report and pathology report are not available to me. On review of his current chart there is notation that his brain tumor was a gl iomatosis cerebri. There is report of near total surgical excision per chart review. IMPRESSION: Gliomatosis cerebri with near total excision neurosurgically on 12/19/2017 at [facility]. Details of pathology and bio marker studies from [facility] are not available for this evaluation or discussion. MEDICAL DECISION MAKING: Today I have reviewed the situation with the patient and his , as well as a family member by cell phone. Gliomatosis cerebri is a relatively rare brain tumor can have an a ggressive course. It is estimated that there are at most a few hundred cases per year in the [place]. Nonetheless, the approach is similar to an aggressive astrocytoma such as a GBM. I have rev iewed the findings with the patient and indicated to him that with the limitation of not having his p athology report, my full assessment are recommendations are somewhat limited as would be expected. N onetheless, standard of care would include whole-brain radiation as provided by one of our radiation oncologists, and use of temozolomide as an oral radiosensitizing chemotherapy agent to be administere d concomitantly with radiation therapy and then thereafter in the adjuvant setting. There certainly may be alternative therapies. Research studies have shown that an IV course of therapy such as PCV c ompared to temozolomide did not show any greater improvement in PFS or OS. However, the more aggress honey IV regiment was certainly more toxic and more difficult to deliver. The patient and his family asked questions indicating their understanding of his circumstances. I wi ll do my best to return by the end of the week with additional information after I have reviewed his [facility] pathology. Thank you for referring the patient to our service. In the course of our medical group, I will trans fawn his medical oncology care to one of our [facility] medical oncologists to provide medical oncology and radiation oncology at the same location. /[id number]/MODL
[2018-01-04] MEDS: levETIRAcetam 500 MG TAB PO SCH ×2 (08:16→20:59)
[2018-01-04] MEDS: DEXAMETHASONE 2 MG TAB PO SCH (08:16)
--- NOTE | 2018-01-04 15:25 | SOAPPROG ---
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 * Initial functional independence measure is 74 on 12/29/2017. He is continent of bowel and bladder but impulsive and has fallen twice. Bed mobility requires minimal assistance with cues to attend to the left. Transfers require minimal to moderate assistance. Wheelchair mobility requires minimal assistance due to left hemineglect. He ambulated 60 ft with a trekking pole, moderate assistance. He is distractible. He used a left AFO. Grooming and hygiene is done seated. Upper body dressing requires cues and supervision, lower body dressing requires contact guard assist and cues. Bath transfer was done with contact guard assist to minimal assist and bathing with minimal assist. Toilet transfer required contact guard to minimal assist and toileting the same. * As of 01/02/2018, has ambulated> 200'. * Continue PT and OT to optimize mobility and activities of daily living towards modified independence to independent level. * Cognitive issues postsurgery. * Mild to moderate executive function deficit with decreased self monitoring and repair skills and decreased inhibition. * Noted to be distractable but impulsivity improved and no longer needing bed or chair alarms as of 01/02/2018. * Continue Speech and Language Pathology. 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 Dr. Carrion believes he may have resected the entire tumor. * Follow up with Oncology in approximately 2 weeks to begin radiation. * Had initial Oncology consult 01/03/2018. * Risk for cerebral edema and for seizures. He will have seizure precautions. Continue levetiracetam and continue dexamethasone taper. * Anxiety verses adjustment disorder with depressed mood versus pathologic laughing and crying. * Discussed medications, 12/27/2017, and he declined. * Encouraged him to engage in counseling with the social services. * Prophylaxis. Mobility much improved. Will discontinue heparin, 01/03/2018. Ambulated to meals. DISPOSITION: He is in the process of a divorce and has moved out to an apartment where there is a full flight of steps. He may discharge to a long- term stay at a hotel if he is unable to handle the steps. Parents and stepmother are very involved in his care, and will continue to assist for some period of months. Discharge plan for 01/16/2018. Disposition unclear, may have new apartment versus return to his home for sure term versus long-term hotel stay. FOLLOWUP: He is to see surgeon, Dr. Carrion on 01/18/2018. PCP is Ger Chen. 01/04/18 15:24 Subjective: Complaints. Endurance is increasing and he is walking further. 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 He has had meeting with Dr. Belcher of Oncology yesterday. Objective: Vital Signs Temp Pulse Resp BP Pulse Ox 36.7 C 86 18 113/80 94 01/04/18 08:00 01/04/18 08:00 01/04/18 08:00 01/04/18 08:00 01/04/18 08:00 Laboratory Results 12/27/17 06:00 12/27/17 06:00 01/03/18 01/04/18 01/05/18 05:59 05:59 05:59 Intake Total 1350 1520 670 Balance 1350 1520 670 Physical Exam - Physical Exam General Appearance: WD/WN, alert, no apparent distress Respiratory: No accessory muscle use, No decreased breath sounds Skin: normal color, warm/dry Neuro/Psych: alert, normal mood/affect, oriented x 3, motor weakness (Left upper extremity) ICD10 Worksheet Patient Problems: Problems Problem Status Onset Right frontal lobe mass Acute S/P craniotomy Acute
[2018-01-05] MEDS: DEXAMETHASONE 2 MG TAB PO SCH (08:02)
[2018-01-05] MEDS: levETIRAcetam 500 MG TAB PO SCH ×2 (08:02→21:37)
--- NOTE | 2018-01-05 15:39 | SOAPPROG ---
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 * Initial functional independence measure is 74 on 12/29/2017, improved to 94 as of 01/05/2018. Standby assist for walking with occasional loss of balance on curbs and stairs if he needs with his weaker left side. Left neglect. Dressing with supervision to standby assist. Toilet transfers, clothing management and hygiene, and showering with standby assist. Contact guard assist for shower transfer. Left upper extremity with motor apraxia. * As of 01/02/2018, has ambulated> 200'. * Continue PT and OT to optimize mobility and activities of daily living towards modified independence to independent level. * Cognitive issues postsurgery. * Mild to moderate executive function deficit with decreased self monitoring and repair skills and decreased inhibition. * Noted to be distractable but impulsivity improved and no longer needing bed or chair alarms as of 01/02/2018. * Continue Speech and Language Pathology. 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 Dr. Carrion believes he may have resected the entire tumor. * Follow up with Oncology in approximately 2 weeks to begin radiation. * Had initial Oncology consult 01/03/2018. * Risk for cerebral edema and for seizures. He will have seizure precautions. Continue levetiracetam and continue dexamethasone taper. * Anxiety verses adjustment disorder with depressed mood. * Discussed medications, 12/27/2017, and he declined. * Encouraged him to engage in counseling with the social work therapist. * Prophylaxis. Mobility much improved. Will discontinue heparin, 01/03/2018. Ambulated to meals. DISPOSITION: Attended staffing, 15 min. Discussed with case management, nursing, dietitian, PT, OT, TURBINE ATTENDANT. He is in the process of a divorce and has moved out to an apartment where there is a full flight of steps, but plans to return home where there are few stairs to climb for up to 2 weeks. He may subsequently moved to an extended stay hotel if he is unable to handle stairs. Parents and stepmother are very involved in his care, and will continue to assist for some period of months. Discharge plan for 01/11/2018. FOLLOWUP: He is to see surgeon, Dr. Carrion on 01/18/2018. PCP is Ger Chen. 01/05/18 15:35 Subjective: No complaints. Overall feeling better today. Which is at the oncologist at had more information when he met with him yesterday. Sleeping well, not in pain. Bowels moving. Objective: Vital Signs Temp Pulse Resp BP Pulse Ox 36.6 C 91 16 127/88 H 94 01/05/18 06:50 01/05/18 06:50 01/05/18 06:50 01/05/18 06:50 01/05/18 06:50 Laboratory Results 12/27/17 06:00 12/27/17 06:00 01/04/18 01/05/18 01/06/18 05:59 05:59 05:59 Intake Total 1520 1440 960 Balance 1520 1440 960 - Time Spent With Patient Time Spent With Patient: Greater than 35 min floor time today, including more than 50% of time in coordination of care during staffing meeting, and counseling patient. Physical Exam - Physical Exam General Appearance: WD/WN, alert, no apparent distress Respiratory: No respiratory distress, No accessory muscle use Skin: normal color, warm/dry, other (Scalp incision clean dry and intact) Neuro/Psych: alert, normal mood/affect, oriented x 3, motor weakness (Left upper extremity) ICD10 Worksheet Patient Problems: Problems Problem Status Onset Right frontal lobe mass Acute S/P craniotomy Acute
--- NOTE | 2018-01-05 17:05 | SOAPPROG ---
SOAP Progress Note Assessment/Plan: Assessment: 1.) R frontal Astrocytoma, Grade III, with tumor characteristics as per report included here. Pt. S/P neurosurgical resection 12/22/17. Comments: I reviewed [employer] review data of Grade III Astrocytomas with Thompson' s characteristics. Of note, other reports, including the [employer] report are not yet back as of today. I encouraged Thompson to schedule Medical Oncology follow up and Radiation Oncology consults as an outpatient at our [facility] facility for the second week in January. I informed Thompson that standard of care would be Radiation Tx to the whole brain with concomitant temozolamide oral chemotherapy. Thompson asked questions indicating an understanding of our conversation. Plan: 1.) Suggest follow up Medical Oncology and Radiation Oncology Consults at [facility] the second week of January. our phone # is [phone] for both departments. 2.) Will sign off. Please recontact our service if needed. 01/05/18 17:05 Subjective: Doing better symptomatically and finds he is improving, as to his level of disability. Objective: Pt lying flat in bed and is animated, conversant and appears cognitively intact. No facial assymetry. Cranial incision healing well. forma exam not performed. 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 5 %. There is loss of ATRX nuclear expression in tumor cells. p53 is negative. MGMT promoter mthylation and 1p19q co-deletion is pending. ICD10 Worksheet Patient Problems: Problems Problem Status Onset Right frontal lobe mass Acute S/P craniotomy Acute
[2018-01-06] MEDS: DEXAMETHASONE 2 MG TAB PO SCH (09:39)
[2018-01-06] MEDS: levETIRAcetam 500 MG TAB PO SCH ×2 (09:41→21:21)
--- NOTE | 2018-01-06 10:13 | SOAPPROG ---
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 * Initial functional independence measure is 74 on 12/29/2017, improved to 94 as of 01/05/2018. Standby assist for walking with occasional loss of balance on curbs and stairs if he needs with his weaker left side. Left neglect. Dressing with supervision to standby assist. Toilet transfers, clothing management and hygiene, and showering with standby assist. Contact guard assist for shower transfer. Left upper extremity with motor apraxia. * As of 01/02/2018, has ambulated> 200'. * Continue PT and OT to optimize mobility and activities of daily living towards modified independence to independent level. * Cognitive issues postsurgery. * Mild to moderate executive function deficit with decreased self monitoring and repair skills and decreased inhibition. * Noted to be distractable but impulsivity improved and no longer needing bed or chair alarms as of 01/02/2018. * Continue Speech and Language Pathology. 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 Dr. Carrion believes he may have resected the entire tumor. * Follow up with Oncology in approximately 2 weeks to begin radiation. * Had initial Oncology consult 01/03/2018. * Risk for cerebral edema and for seizures. He will have seizure precautions. Continue levetiracetam and continue dexamethasone taper. * Anxiety verses adjustment disorder with depressed mood. * Discussed medications, 12/27/2017, and he declined. * Encouraged him to engage in counseling with the social work msw. * Prophylaxis. Mobility much improved. Will discontinue heparin, 01/03/2018. Ambulated to meals. * HYPERTENSION-HIS LAST 3 DIASTOLIC BLOOD PRESSURES HAVE BEEN ELEVATED. WILL CONTINUE TO MONITOR, CONSIDER ADDING ANTIHYPERTENSIVE IF DIASTOLIC BLOOD PRESSURE REMAINS ELEVATED * LAB WORK-SINCE HE HAS NOT HAD A CBC OR BMP SINCE 12/27, WILL REPEAT THESE IN A.M. ORDERS PLACED FOR THIS. DISPOSITION: Attended staffing, 15 min. Discussed with case management, nursing, dietitian, PT, OT, SERVICE UNIT OPERATOR OIL WELL. He is in the process of a divorce and has moved out to an apartment where there is a full flight of steps, but plans to return home where there are few stairs to climb for up to 2 weeks. He may subsequently moved to an extended stay hotel if he is unable to handle stairs. Parents and stepmother are very involved in his care, and will continue to assist for some period of months. Discharge plan for 01/11/2018. FOLLOWUP: He is to see surgeon, Dr. Carrion on 01/18/2018. PCP is Ger Chen. 01/05/18 15:35 Subjective: No complaints. Overall feeling better today. Which is at the oncologist at had more information when he met with him yesterday. Sleeping well, not in pain. Bowels moving. Objective: Vital Signs Plan: 01/06/18 10:08 01/06/18 10:10 Subjective: HE DENIES HEADACHE, VISUAL DISTURBANCES OR INCREASING UPPER OR LOWER EXTREMITY WEAKNESS. HE DENIES LEFT UPPER OR LEFT LOWER EXTREMITY NEUROPATHIC PAIN. HE REPORTS SLOW STRENGTH GAINS IN THE LEFT UPPER AND LEFT LOWER EXTREMITY. Objective: Vital Signs Temp Pulse Resp BP Pulse Ox 36.4 C 75 16 117/87 H 96 01/06/18 06:39 01/06/18 06:39 01/06/18 06:39 01/06/18 06:39 01/06/18 06:39 Laboratory Results 12/27/17 06:00 12/27/17 06:00 01/05/18 01/06/18 01/07/18 05:59 05:59 05:59 Intake Total 1440 1210 240 Output Total 150 Balance 1440 1210 90 Physical Exam - Physical Exam General Appearance: WD/WN, alert, no apparent distress EENT: PERRL/EOMI Neck: supple Respiratory: lungs clear, normal breath sounds Cardiac/Chest: No edema Abdomen: normal bowel sounds, non-tender, soft Skin: other (LEFT SCALP INCISION IS HEALING WELL. NO ERYTHEMA OR DRAINAGE.) Extremities: No swelling, No Aurora's sign Neuro/Psych: motor weakness (DENSE LEFT UPPER EXTREMITY PLEGIA. HE IS GETTING SOME RETURN OF THE LEFT BICEPS AND WRIST EXTENSORS. HAS MILD LEFT FOOT DROP) ICD10 Worksheet Patient Problems: Problems Problem Status Onset Right frontal lobe mass Acute S/P craniotomy Acute
[2018-01-07] MEDS: levETIRAcetam 500 MG TAB PO SCH ×2 (08:14→20:06)
[2018-01-07 09:18] LABS: PLATELET COUNT 196 10^3/uL (150-400)
--- NOTE | 2018-01-07 09:47 | SOAPPROG ---
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 * Initial functional independence measure is 74 on 12/29/2017, improved to 94 as of 01/05/2018. Standby assist for walking with occasional loss of balance on curbs and stairs if he needs with his weaker left side. Left neglect. Dressing with supervision to standby assist. Toilet transfers, clothing management and hygiene, and showering with standby assist. Contact guard assist for shower transfer. Left upper extremity with motor apraxia. * As of 01/02/2018, has ambulated> 200'. * Continue PT and OT to optimize mobility and activities of daily living towards modified independence to independent level. * Cognitive issues postsurgery. * Mild to moderate executive function deficit with decreased self monitoring and repair skills and decreased inhibition. * Noted to be distractable but impulsivity improved and no longer needing bed or chair alarms as of 01/02/2018. * Continue Speech and Language Pathology. 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 Dr. Carrion believes he may have resected the entire tumor. * Follow up with Oncology in approximately 2 weeks to begin radiation. * Had initial Oncology consult 01/03/2018. * Risk for cerebral edema and for seizures. BMP OBTAINED THIS MORNING SODIUM 141, POTASSIUM 3.9. He will have seizure precautions. Continue levetiracetam and continue dexamethasone taper. * Anxiety verses adjustment disorder with depressed mood. * Discussed medications, 12/27/2017, and he declined. * Encouraged him to engage in counseling with the social professionals. * Prophylaxis. Mobility much improved. Will discontinue heparin, 01/03/2018. Ambulated to meals. * HYPERTENSION-BLOOD PRESSURE THIS MORNING 105/74 DISPOSITION: Attended staffing, 15 min. Discussed with case management, nursing, dietitian, PT, OT, GOLF MANAGER. He is in the process of a divorce and has moved out to an apartment where there is a full flight of steps, but plans to return home where there are few stairs to climb for up to 2 weeks. He may subsequently moved to an extended stay hotel if he is unable to handle stairs. Parents and stepmother are very involved in his care, and will continue to assist for some period of months. Discharge plan for 01/11/2018. FOLLOWUP: He is to see surgeon, Dr. Carrion on 01/18/2018. PCP is Ger Chen. 01/05/18 15:35 Subjective: No complaints. Overall feeling better today. Which is at the oncologist at had more information when he met with him yesterday. Sleeping well, not in pain. Bowels moving. Objective: Vital Signs Plan: 01/06/18 10:08 01/06/18 10:10 01/07/18 09:48 Subjective: NO PROBLEMS REPORTED BY PATIENT OR STAFF Objective: Vital Signs Temp Pulse Resp BP Pulse Ox 36.4 C 75 16 105/74 95 01/07/18 06:35 01/07/18 06:35 01/07/18 06:35 01/07/18 06:35 01/07/18 06:35 Laboratory Results 01/07/18 06:45 01/07/18 06:45 01/06/18 01/07/18 01/08/18 05:59 05:59 05:59 Intake Total 1210 510 410 Output Total 250 Balance 1210 260 410 Physical Exam - Physical Exam General Appearance: WD/WN, alert, no apparent distress Neck: full range of motion, supple Respiratory: lungs clear, normal breath sounds Abdomen: normal bowel sounds, non-tender, soft Skin: warm/dry Neuro/Psych: motor weakness (LEFT UPPER AND LEFT LOWER EXTREMITY MOTOR EXAM UNCHANGED FROM PREVIOUS. LEFT UPPER GREATER THAN LEFT LOWER EXTREMITY WEAKNESS WITH DENSE PLEGIA LEFT UPPER EXTREMITY.), cognition abnormalities ICD10 Worksheet Patient Problems: Problems Problem Status Onset Right frontal lobe mass Acute S/P craniotomy Acute
[2018-01-08] MEDS: levETIRAcetam 500 MG TAB PO SCH ×2 (07:53→20:00)
--- NOTE | 2018-01-08 14:07 | SOAPPROG ---
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 * Initial functional independence measure is 74 on 12/29/2017, improved to 94 as of 01/05/2018. Standby assist for walking with occasional loss of balance on curbs and stairs if he needs with his weaker left side. Left neglect. Dressing with supervision to standby assist. Toilet transfers, clothing management and hygiene, and showering with standby assist. Contact guard assist for shower transfer. Left upper extremity with motor apraxia. * As of 01/02/2018, has ambulated> 200'. As of 01/08/2018, independent in room with trekking poles 24 hr a day, has climbed and descended 36 stairs. * Continue PT and OT to optimize mobility and activities of daily living towards modified independence to independent level. * Cognitive issues postsurgery. * Mild to moderate executive function deficit with decreased self monitoring and repair skills and decreased inhibition. * Noted to be distractable but impulsivity improved and no longer needing bed or chair alarms as of 01/02/2018. * Continue Speech and Language Pathology. 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 Dr. Carrion believes he may have resected the entire tumor. * Follow up with Oncology in approximately 2 weeks to begin radiation. * Had initial Oncology consult 01/03/2018. * Risk for cerebral edema and for seizures. He will have seizure precautions. Continue levetiracetam and continue dexamethasone taper. * Anxiety verses adjustment disorder with depressed mood. * Discussed medications, 12/27/2017, and he declined. * Encouraged him to engage in counseling with the licensed master social worker. * Prophylaxis. Mobility much improved. Will discontinue heparin, 01/03/2018. Ambulated to meals. DISPOSITION: He is in the process of a divorce and has moved out to an apartment where there is a full flight of steps, but plans to return home where there are few stairs to climb for up to 2 weeks. He may subsequently moved to an extended stay hotel if he is unable to handle stairs. Parents and stepmother are very involved in his care, and will continue to assist for some period of months. Discharge plan for 01/11/2018. FOLLOWUP: He is to see surgeon, Dr. Carrion on 01/18/2018. PCP is Ger Chen. 01/08/18 14:06 Subjective: No complaints. Working hard. Says he has been climbing stairs. Objective: Vital Signs Temp Pulse Resp BP Pulse Ox 36.7 C 68 17 105/75 97 01/08/18 06:37 01/08/18 06:37 01/08/18 06:37 01/08/18 06:37 01/08/18 06:37 Laboratory Results 01/07/18 06:45 01/07/18 06:45 01/07/18 01/08/18 01/09/18 05:59 05:59 05:59 Intake Total 510 2410 360 Output Total 250 Balance 260 2410 360 Physical Exam - Physical Exam General Appearance: WD/WN, alert, no apparent distress Respiratory: normal breath sounds, No crackles, No rhonchi, No wheezing Cardiac/Chest: regular rate, rhythm, No edema, No diastolic murmur, No systolic murmur Skin: normal color, warm/dry, other (Scalp wound well-approximated, no erythema or discharge.) Neuro/Psych: alert, normal mood/affect, oriented x 3, motor weakness (Left upper extremity) ICD10 Worksheet Patient Problems: Problems Problem Status Onset Right frontal lobe mass Acute S/P craniotomy Acute
[2018-01-09] MEDS: levETIRAcetam 500 MG TAB PO SCH ×2 (08:23→20:19)
--- NOTE | 2018-01-09 16:20 | SOAPPROG ---
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 * Initial functional independence measure is 74 on 12/29/2017, improved to 94 as of 01/05/2018. Standby assist for walking with occasional loss of balance on curbs and stairs if he needs with his weaker left side. Left neglect. Dressing with supervision to standby assist. Toilet transfers, clothing management and hygiene, and showering with standby assist. Contact guard assist for shower transfer. Left upper extremity with motor apraxia. * As of 01/02/2018, has ambulated> 200'. As of 01/08/2018, independent in room with trekking poles 24 hr a day, has climbed and descended 36 stairs. * Continue PT and OT to optimize mobility and activities of daily living towards modified independence to independent level. * Cognitive issues postsurgery. * Mild to moderate executive function deficit with decreased self monitoring and repair skills and decreased inhibition. * Noted to be distractable but impulsivity improved and no longer needing bed or chair alarms as of 01/02/2018. * Continue Speech and Language Pathology. * Grade 3 astrocytoma. Discussed with neurosurgeon Dr. Carrion, 01/01/2018. 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 Dr. Carrion believes he may have resected the entire tumor. * Follow up with Oncology in approximately 2 weeks to begin radiation. * Had initial Oncology consult 01/03/2018. * Risk for cerebral edema and for seizures. He will have seizure precautions. Continue levetiracetam. He has completed dexamethasone taper. * Anxiety verses adjustment disorder with depressed mood. * Discussed medications, 12/27/2017, and he declined. * Encouraged him to engage in counseling with the vp digital marketing social media and crm. * Prophylaxis. Mobility much improved. Will discontinue heparin, 01/03/2018. Ambulated to meals. DISPOSITION: He is in the process of a divorce and has moved out to an apartment where there is a full flight of steps, but plans to return home where there are few stairs to climb for up to 2 weeks. He may subsequently moved to an extended stay hotel if he is unable to handle stairs. Parents and stepmother are very involved in his care, and will continue to assist for some period of months. Discharge plan for 01/11/2018. FOLLOWUP: He is to see surgeon, Dr. Carrion on 01/18/2018. PCP is Ger Chen. 01/09/18 16:18 Subjective: No complaints. Sleeping well. Not in pain. Ambulating much better. He reports he is beginning to note increased return of movement to his left upper extremity. Objective: Vital Signs Temp Pulse Resp BP Pulse Ox 36.8 C 104 H 18 123/91 H 97 01/09/18 08:00 01/09/18 08:00 01/09/18 08:00 01/09/18 08:00 01/09/18 08:00 Laboratory Results 01/07/18 06:45 01/07/18 06:45 01/08/18 01/09/18 01/10/18 05:59 05:59 05:59 Intake Total 2410 610 870 Balance 2410 610 870 Physical Exam - Physical Exam General Appearance: WD/WN, alert, no apparent distress Respiratory: No respiratory distress, No accessory muscle use Skin: normal color, warm/dry Neuro/Psych: alert, normal mood/affect, oriented x 3, other (Seen ambulating outside with tracking pole in his right hand and inside with no tracking pole, normal gait. Left upper extremity in a neuro sling.) ICD10 Worksheet Patient Problems: Problems Problem Status Onset Right frontal lobe mass Acute S/P craniotomy Acute
[2018-01-10] MEDS: levETIRAcetam 500 MG TAB PO SCH ×2 (09:13→20:06)
--- NOTE | 2018-01-10 09:57 | SOAPPROG ---
SOAP Progress Note Assessment/Plan: Assessment: * Debility with left hemiparesis, status post right craniotomy and resection of mass. * Initial functional independence measure is 74 on 12/29/2017, improved to 94 as of 01/05/2018. Standby assist for walking with occasional loss of balance on curbs and stairs if he needs with his weaker left side. Left neglect. Dressing with supervision to standby assist. Toilet transfers, clothing management and hygiene, and showering with standby assist. Contact guard assist for shower transfer. Left upper extremity with motor apraxia. * As of 01/02/2018, has ambulated> 200'. As of 01/08/2018, independent in room with trekking poles 24 hr a day, has climbed and descended 36 stairs. * Continue PT and OT to optimize mobility and activities of daily living towards modified independence to independent level. * Cognitive issues postsurgery. * Mild to moderate executive function deficit with decreased self monitoring and repair skills and decreased inhibition. * Noted to be distractable but impulsivity improved and no longer needing bed or chair alarms as of 01/02/2018. * Continue Speech and Language Pathology. * Grade 3 astrocytoma. Discussed with neurosurgeon Dr. Carrion, 01/01/2018. 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 Dr. Carrion believes he may have resected the entire tumor. * Follow up with Oncology in approximately 2 weeks to begin radiation. * Had initial Oncology consult 01/03/2018. Wishes to follow up with Neurooncology at the [facility]. * Risk for cerebral edema and for seizures. He will have seizure precautions. Continue levetiracetam. He has completed dexamethasone taper. * Anxiety verses adjustment disorder with depressed mood. * Discussed medications, 12/27/2017, and he declined. * Encouraged him to engage in counseling with the social group worker. * Prophylaxis. Mobility much improved. Discontinued heparin, 01/03/2018. Ambulated to meals. DISPOSITION: He is in the process of a divorce and has moved out to an apartment where there is a full flight of steps, but plans to return home where there are few stairs to climb for up to 2 weeks. He may subsequently moved to an extended stay hotel if he is unable to handle stairs. Parents and stepmother are very involved in his care, and will continue to assist for some period of months. Discharge plan for 01/11/2018. FOLLOWUP: He is to see surgeon, Dr. Carrion on 01/18/2018. PCP is Ger Chen. 01/10/18 09:56 Subjective: No complaints. Notes increasing return of movement to the left upper extremity. Objective: Vital Signs Temp Pulse Resp BP Pulse Ox 36.6 C 74 20 117/86 H 97 01/10/18 06:11 01/10/18 06:11 01/10/18 06:11 01/10/18 06:11 01/10/18 06:11 Laboratory Results 01/07/18 06:45 01/07/18 06:45 01/09/18 01/10/18 01/11/18 05:59 05:59 05:59 Intake Total 610 1470 510 Balance 610 1470 510 Physical Exam - Physical Exam General Appearance: WD/WN, alert, no apparent distress Respiratory: No respiratory distress, No accessory muscle use Skin: normal color, warm/dry Neuro/Psych: alert, normal mood/affect, oriented x 3, motor weakness (Right hand with increased flexor tone. Able to flex fingers but limited extension. Does not have wrist extension. Biceps is active as well as shoulder shrug.) ICD10 Worksheet Patient Problems: Problems Problem Status Onset Right frontal lobe mass Acute S/P craniotomy Acute
--- NOTE | 2018-01-10 14:13 | PDOREHIP ---
Admission [facility] - Admission - 3 Day Assessment Period Admission Date/Day 1: 12/26/17 Day 2: 12/27/17 Day 3: 12/28/17 Discharge [facility] - Discharge - 3 Day Assessment Period 2 Days Prior to Anticipated Discharge Date: 01/09/18 1 Day Prior to Anticipated Discharge Date: 01/10/18 Anticipated Discharge Date: 01/11/18 - Discharge Skin Conditions Unhealed Pressure Ulcer (1 or more/Stage 1 or >)-Discharge: 0. No
[2018-01-11] MEDS: levETIRAcetam 500 MG TAB PO SCH (10:01)
[2018-01-11 14:17] VITALS: BP 123/97
--- NOTE | 2018-01-11 16:28 | GDS ---
[f rep st] DISCHARGE SUMMARY ADMITTING DIAGNOSIS: Right frontal brain mass, status post craniotomy and excision. DISCHARGE DIAGNOSIS: Grade 3 astrocytoma, right frontal, status post craniotomy and excision. OTHER DISCHARGE DIAGNOSES: 1. Debility with left hemiparesis. 2. Mild impairment to cognition. COMPLICATIONS: There were none. CONSULTATIONS: He had consultation with Oncology, Dr. Ordonez. PROCEDURES: There were none. HISTORY AND HOSPITAL COURSE: This patient was admitted from [facility], where he had presented on 12/21/2017 with headache, dizziness, vomiting and blurred vision. Brain MRI showed an extensive mass in the right frontal lobe with midline shift. He was initially placed on dexamethasone to reduce brain edema and levetiracetam for seizure prophylaxis. He underwent craniotomy with excision of the mass on 12/22/2017. He was medically stabilized and appropriate for inpatient rehabilitation. He did well in rehabilitation. His initial functional independence measure was 74 on 12/29/2017, which was consistent with senior care level of care. He had impulsivity and had fallen twice. He required assistance for bed mobility and transfers, wheelchair mobility, ambulation, and lower body dressing. He had steady improvement with his functional independence measure improving to 94 as of 01/05/2018. This is consistent with assisted living level of function. He had achieved standby assist for walking with occasional loss of balance on curbs and stairs. He still had left neglect. Activities of daily living were done with standby assist. He had continued improvement after 01/05/2018 and was made independent in his room 24 hours a day. He had climbed and descended 36 stairs and had ambulated outside independently. He had considerable improvement cognitively. He had a consultation with Dr. Ordonez of Oncology. His pathology returned as grade 3 astrocytoma. Tumor genetics had mutations with positive prognosis. He chose to have care with Neuro-Oncology at the [facility] in [place]. CONDITION ON DISCHARGE: Good. ACTIVITY: Ad jim, but he is not to be driving due to the left-sided hemineglect. DIET: Regular. WOUND CARE: His scalp wound is healed. DISPOSITION: He is in the process of a divorce and has moved to an apartment with a full flight of steps. He will initially return to his home with his where he can stay for approximately 2 more weeks prior to returning to his apartment. DISCHARGE MEDICATIONS: Only levetiracetam 500 mg p.o. b.i.d. ISSUES TO BE ADDRESSED AT FOLLOWUP: 1. Functional status. He will continue outpatient physical and occupational therapies, and he can follow up with his primary care provider regarding his progress. 2. Grade 3 astrocytoma[address] He will see Dr. Hemalatha Ley of the Neuro-Oncology service at the [facility] in [place] with an appointment set for 01/31/2018. 3. Status post craniotomy and resection of right frontal astrocytoma. He has followup scheduled with neurosurgeon, Dr. Elliott Carrion, on 01/18/2018. /[id number]/MODL MTDD
== END 2018-01-11 14:57 | disposition home or self-care (01) | DRG 949 ==
LOC: BREH 12-26 14:49
PROVIDERS: ADMIT Internal Medicine; ATTEND Internal Medicine
PROC: F07Z8ZZ Transfer Training Treatment (ICD-10-PCS; principal; 2017-12-26)
PROC: F06 Physical Rehabilitation and Diagnostic Audiology, Rehabilitation, Speech Treatment (ICD-10-PCS; principal; 2017-12-26)
PROC: F08Z2ZZ Grooming/Personal Hygiene Treatment (ICD-10-PCS; principal; 2017-12-26)
PROC: F07Z5ZZ Bed Mobility Treatment (ICD-10-PCS; principal; 2017-12-26)
PROC: F08Z1ZZ Dressing Techniques Treatment (ICD-10-PCS; principal; 2017-12-26)
PROC: F08Z3ZZ Feeding/Eating Treatment (ICD-10-PCS; principal; 2017-12-26)
DX: Z48.811 Encounter for surgical aftercare following surgery on the nervous system (principal); C71.0 Malignant neoplasm of cerebrum, except lobes and ventricles; G81.92 Hemiplegia, unspecified affecting left dominant side; R47.01 Aphasia
CPT/HCPCS: 92507-GN; 92508-GN; 92523-GN; 92610-GN; 97110-GO; 97110-GP; 97112-GO; 97112-GP; 97116-GP; 97162-GP; 97166-GO; 97530-GP; 97535-GO; G0515-GO; J1644